=== PATIENT | male | born 2000 | race American Indian/Alaskan Native ===

== ENCOUNTER 2021-08-17 13:10 | Emergency (ER) | payer BC ==
[2021-08-17 16:23] LABS: Mucus,Urine FEW /HPF; WBC,Urine < 1.0 /HPF (0.0-6.0)
[2021-08-17 16:50] LABS: Color,Urine Straw (Yellow)
[2021-08-17 16:51] LABS: Bilirubin,Urine Negative (Negative); Blood,Urine Negative (Negative); Protein,Urine <15 mg/dL mg/dL (Negative); Urobilinogen,Urine < 2.0 mg/dL (<2.0)
--- NOTE | 2021-08-17 17:55 | Emergency Department Report ---
ED General Adult HPI - General Chief complaint: Arrhythmia/Palpitations Stated complaint: Heart racing Time Seen by Provider: 08/17/21 17:02 Source: patient, RN notes reviewed Mode of arrival: Ambulatory Limitations: No Limitations - History of Present Illness Initial comments: This patient is a pleasant and cooperative 20-year-old gentleman. He presents to the ER today with a complaint of chest pressure and heart racing that started this morning, and lasted for approximately 20 minutes. It is now resolved. He feels like he is back to his baseline. He does report that he has had a history of "protein in my urine." Denies travel, surgery, immobilization, DVT/PE risk factors. He does not have physical pain at this time. He denies urinary sy mptoms at this time. He occasionally vapes. He denies recreational drug ingestion otherwise. He denies contributory family history. He states that he feels like he is at his baseline. He is right-hand dominant. -: Sudden Consistency: now resolved Improves with: none Worsens with: none Associated Symptoms: denies other symptoms - Related Data Allergies Allergy/AdvReac Type Severity Reaction Status Date / Time No Known Allergies Allergy Verified 08/17/21 14:36 ED Review of Systems ROS: Stated complaint: HEART RACING/CHILLS Other details as noted in HPI Comment: All other systems reviewed and negative (Patient denies all symptoms currently) ED Past Medical Hx - Past Medical History Previous Medical History?: No - Social History Smoking Status: Never Smoker Substance Use Type: None ED Physical Exam - General Limitations: No Limitations General appearance: alert, in no apparent distress - Head Head exam: Present: atraumatic, normocephalic - Eye Eye exam: Present: normal appearance, EOMI. Absent: nystagmus - ENT ENT exam: Present: normal exam, normal orophraynx, mucous membranes moist, normal external ear exam - Neck Neck exam: Present: normal inspection, full ROM. Absent: tenderness, meningismus - Respiratory Respiratory exam: Present: normal lung sounds bilaterally. Absent: respiratory distress, wheezes, rhonchi, stridor, decreased breath sounds - Cardiovascular Cardiovascular Exam: Present: normal rhythm, bradycardia, normal heart sounds. Absent: tachycardia, irregular rhythm, systolic murmur, diastolic murmur, rubs, gallop - GI/Abdominal GI/Abdominal exam: Present: soft. Absent: distended, tenderness, guarding, rebound, rigid, pulsatile mass - Rectal Rectal exam: Present: deferred - Extremities Exam Extremities exam: Present: normal inspection, full ROM, other (2+ pulses noted in the bilateral upper and lower extremities. There is no palpable cord. negative Homans sign. Muscular compartments are soft. The pelvis is stable.). Absent: pedal edema, calf tenderness - Back Exam Back exam: Present: normal inspection. Absent: tenderness, CVA tenderness (R), CVA tenderness (L), paraspinal tenderness, vertebral tenderness - Neurological Exam Neurological exam: Present: alert, oriented X3, normal gait, other (No facial droop. Tongue midline. Extraocular movements intact bilaterally. Facial sensation intact to light touch in V1, V2, V3 distribution bilaterally. 5 and a 5 strength in 4 extremities. Sensation intact to light touch in 4 extremities.). Absent: motor sensory deficit - Psychiatric Psychiatric exam: Present: normal affect, normal mood - Skin Skin exam: Present: warm, dry, intact, normal color. Absent: rash ED Course Vital Signs 08/17/21 08/17/21 08/17/21 14:34 16:26 16:44 Temperature 97.8 F Pulse Rate 59 L 61 Respiratory 16 18 Rate Blood Pressure 124/69 Blood Pressure 119/64 [Left] O2 Sat by Pulse 100 100 100 Oximetry - Pulse Oximetry Interpretation Digit-Finger Initial Pulse Oximetry Readin O2 Sat by Pulse Oximetry: 99 Actions Taken: none ED Medical Decision Making - Lab Data Vital Signs 08/17/21 08/17/21 08/17/21 14:34 16:26 16:44 Temperature 97.8 F Pulse Rate 59 L 61 Respiratory 16 18 Rate Blood Pressure 124/69 Blood Pressure 119/64 [Left] O2 Sat by Pulse 100 100 100 Oximetry Lab Results 08/17/21 Range/Units 15:11 Urine Color Straw (Yellow) Urine Turbidity Clear (Clear) Urine pH 5.0 (5.0-7.0) Ur Specific [place] 1.025 (1.003-1.030) Urine Protein <15 mg/dl (Negative) mg/dL Urine Glucose (UA) Negative (Negative) mg/dL Urine Ketones Negative (Negative) mg/dL Urine Blood Negative (Negative) Urine Nitrite Negative (Negative) Ur Reducing Substances Not Reportable Urine Bilirubin Negative (Negative) Urine Ictotest Not Reportable Urine Urobilinogen < 2.0 (<2.0) mg/dL Ur Leukocyte Esterase Negative (Negative) Urine WBC (Auto) < 1.0 (0.0-6.0) /HPF Urine RBC (Auto) 2.0 (0.0-6.0) /HPF U Epithel Cells (Auto) < 1.0 (0-13.0) /HPF Urine Mucus Few /HPF - EKG Data -: EKG Interpreted by Me EKG shows normal: sinus rhythm Rate: bradycardia - EKG Data When compared to previous EKG there are: previous EKG unavailable 08/17/21 17:53 The EKG is interpreted at 14: 39 Sinus rhythm, bradycardia, 55 bpm. Early repolarization, high left ventricular voltage, normal axis, normal P wave axis. Age and demographic appropriate normal variant. Not a STEMI. No prior for comparison. - Medical Decision Making Differential diagnosis, including but not limited to: Anxiety, encounter for medical screening examination Assessment and plan: 20-year-old gentleman, who is afebrile, with reassuring vital signs, clinically sober with a GCS of 15, who is not currently tachycardic, tachypneic or hypoxic, who denies DVT, pulmonary embolism risk factors, who is low risk by Wells criteria for pulmonary embolism and is PERC negative, presenting with nonspecific resolved chest discomfort that started earlier on this morning, but not an unremarkable physical examination, and unremarkable EKG. ST morphology early repolarization. I do not feel that laboratory studies are emergently necessary, but, as a matter of consideration and convenience, I did offer to the patient some laboratory study evaluation here in the emergency room. However, the patient declines. I think that this is reasonable, because I do not have a concern that he has an emergent laboratory abnormality therefore, through shared decision-making, we agreed to discharge the patient to follow-up with an outpatient primary care doctor. On final reassessment, he is afebrile, with reassuring vital signs, speaking on his cellular phone, in no acute distress. Critical care attestation.: If time is entered above; I have spent that time in minutes in the direct care of this critically ill patient, excluding procedure time. ED Disposition Clinical Impression: History of palpitations Disposition: HOME / SELF CARE / HOMELESS Is pt being admited?: No Does the pt Need Aspirin: No Condition: Good Instructions: Palpitations Additional Instructions: Please make certain to get 7 to 8 hours of good quality uninterrupted sleep each evening. Avoid consumption of alcohol, tobacco, caffeine, stimulants and energy drinks. Avoid consumption of smoke products. Follow-up with a primary care doctor or check writing machine operator within the next 2 weeks. Please return to the emergency room right away with new pain, worsened pain, migration of pain, projectile vomiting, change in mental status, confusion, inability tolerate liquid feeds, new, worsened or different symptoms not present on the initial emergency room evaluation Patient may take [id number] Tylenol, ibuprofen, Pepcid or Protonix as needed for physical pain. Referrals: [facility] [Provider Group] - 3-5 Days [facility] [Provider Group] - 3-5 Days Forms: Work/School Release Form(ED)
[2021-08-17 18:13] VITALS: BP 115/61
--- NOTE | 2021-08-18 18:00 | Electrocardiograph Report ---
[facility] Test Date: 2021-08-17 Test Time: 14:39:06 Pat Name: COLLEEN CALIXTO Department: Room: Gender: M Service Line Bus Cleaner: ED NURSE : 2000 Requested By: OMID BARBA Order Number: [id number] Reading MD: Morro Dietz Measurements Intervals [employer] Rate: 55 P: 32 NV: 141 QRS: 80 QRSD: 84 T: 44 QT: 413 QTc: 395 Interpretive Statements Sinus rhythm Early repolarization ST changes No previous ECG available for comparison Electronically Signed On 08-18-2021 17:59:33 EDT by Morro Dietz
== END 2021-08-17 18:12 | disposition home or self-care (01) ==
LOC: ED 13:10
DX: R00.2 Palpitations (principal)
CPT/HCPCS: 81001; 93005; 99283